=== PATIENT | male | born 1945 | race Caucasian/White ===

== ENCOUNTER 2015-12-22 20:48 | Outpatient (RCR) | payer MEDICARE, OTHER ==
[~2015-12-22] VITALS: Ht 177.8 cm; Wt 122.5 kg
[~2015-12-22 20:48] MED LIST: ALBU8CC IH; CETI-262 PO; CHOL500050 PO; CPR500T PO; CYCL10TA45 PO; DICY20TA33 PO; HYDR-3708 PO; HYDROXYSUT PO; IPRA4AER INH; LEFL20TA18 PO; MAGN400C PO; METH2.5T PO; METO-311 PO; MMT17NA; NF-ESOM40C PO; OMEG-82 PO; ONDN4T PO; SMV20T PO; UBID100C8 PO; [UNRECOGNIZED DRUG - CODE] PO
[2015-12-22] MEDS ORDERED: VANCOMYCIN IV SCH (21:00)
[2015-12-22] MEDS ORDERED: NS IV SCH (21:00)
--- NOTE | 2015-12-23 00:21 | NUR ---
T 97.2, P 67, R 20, B/P 134/74, O2 SAT 95% ON RA. INFUSION COMPLETED. PT DC'D HOME.
[2015-12-23] MEDS ORDERED: VANCOMYCIN COMPOUNDED BY PHARMACY IV SCH (08:05)
[2015-12-23] MEDS: NS FLUSH 10 ML PRN IV ×4 (09:16→20:45)
[2015-12-23] MEDS: VANCOMYCIN 2000 MG in NS IV 480 ML IV SCH ×2 (09:17→20:45)
--- NOTE | 2015-12-23 09:18 | NUR ---
ROBSON GASPART SCAN
--- NOTE | 2015-12-23 10:09 | NUR ---
PT SLEEPING IN RECLINER WITH NO COMPLAINTS AT THIS TIME. PT HAD STATED THAT HE HAD DIARRHEA MULTIPLE TIMES EARLIER THIS AM. CL
[2015-12-24] MEDS: VANCOMYCIN 2000 MG in NS IV 480 ML IV SCH (08:35)
[2015-12-24] MEDS: NS FLUSH 10 ML PRN IV (08:35)
[2015-12-24 09:03] LABS: VANCOMYCIN,TROUGH 11.9 ug/mL (10.0-15.0)
[2015-12-25 09:50] LABS: ALBUMIN 3.7 g/dL (3.4-5.0); TOTAL PROTEIN 7.5 g/dL (6.4-8.5)
[2015-12-25 09:55] LABS: MEAN CORPUSCULAR HGB CONC 34.3 g/dL (31.0-37.0); MEAN CORPUSCULAR VOLUME 93 FL (80-100); MEAN PLATELET VOLUME 10.5 FL (6.0-9.5); PLATELET COUNT 145 10^3uL (150-450); WHITE BLOOD COUNT 5.49 10^3uL (4.0-11.0)
[2015-12-25 09:58] LABS: MEAN CORPUSCULAR HEMOGLOBIN 31.8 PG (26.0-34.0)
[2015-12-25] MEDS: cefTRIAXone SODIUM 2 GM in SODIUM CHLORIDE 50 ML IV SCH (10:10)
[2015-12-25 10:11] LABS: BAND NEUTROPHILS % 0 % (0-6); EOSINOPHILS % 10 % (0-4); LYMPHOCYTES # 1.3 #; MONOCYTES # 0.7 #; MONOCYTES % 14 % (3-11); RBC MORPH NORMAL (NORMAL); SEGMENTED NEUTROPHILS % 52 % (51-67); TOTAL CELLS COUNTED 100
[2015-12-25] MEDS: NS FLUSH 3 ML PRN IV (10:11)
[2015-12-25] MEDS: NS FLUSH 10 ML PRN IV (10:11)
[2015-12-25 11:06] LABS: ERYTHROCYTE SEDIMENTATION RT* 45 mm/hr (0-19)
[2015-12-26] MEDS: cefTRIAXone SODIUM 2 GM in SODIUM CHLORIDE 50 ML IV SCH (08:50)
[2015-12-26] MEDS: NS FLUSH 10 ML PRN IV (08:51)
[2015-12-27] MEDS: cefTRIAXone SODIUM 2 GM in SODIUM CHLORIDE 50 ML IV SCH (08:51)
[2015-12-27] MEDS: NS FLUSH 10 ML PRN IV ×2 (08:51→08:52)
[2015-12-28] MEDS: NS FLUSH 10 ML PRN IV ×2 (08:34→08:58)
[2015-12-28] MEDS: cefTRIAXone SODIUM 2 GM in SODIUM CHLORIDE 50 ML IV SCH (08:34)
[2015-12-28] MEDS ORDERED: LSNP20T PO (08:56)
[2015-12-29] MEDS: cefTRIAXone SODIUM 2 GM in SODIUM CHLORIDE 50 ML IV SCH (08:59)
[2015-12-29] MEDS: NS FLUSH 10 ML PRN IV (09:00)
[2015-12-29] MEDS: NS FLUSH 3 ML PRN IV (09:00)
[2015-12-30] MEDS: cefTRIAXone SODIUM 2 GM in SODIUM CHLORIDE 50 ML IV SCH (09:00)
[2015-12-31] MEDS: cefTRIAXone SODIUM 2 GM in SODIUM CHLORIDE 50 ML IV SCH (08:40)
[2015-12-31] MEDS: NS FLUSH 10 ML PRN IV ×2 (08:41→09:04)
[2015-12-31] MEDS ORDERED: [UNRECOGNIZED DRUG - CODE] PO (08:58)
[2015-12-31] MEDS ORDERED: OMEG1CAP61 PO (09:12)
[2016-01-01] MEDS: cefTRIAXone SODIUM 2 GM in SODIUM CHLORIDE 50 ML IV SCH (08:53)
[2016-01-01] MEDS: NS FLUSH 10 ML PRN IV ×2 (08:53→09:13)
[2016-01-02] MEDS: NS FLUSH 10 ML PRN IV (08:41)
[2016-01-02] MEDS: cefTRIAXone SODIUM 2 GM in SODIUM CHLORIDE 50 ML IV SCH (08:41)
[2016-01-03] MEDS: cefTRIAXone SODIUM 2 GM in SODIUM CHLORIDE 50 ML IV SCH (08:50)
[2016-01-03] MEDS: NS FLUSH 10 ML PRN IV (08:51)
[2016-01-03] MEDS: NS FLUSH 3 ML PRN IV (08:51)
[2016-01-04] MEDS: cefTRIAXone SODIUM 2 GM in SODIUM CHLORIDE 50 ML IV SCH (08:42)
[2016-01-04] MEDS: NS FLUSH 10 ML PRN IV ×2 (08:42→08:43)
[2016-01-04 08:53] VITALS: BP 146/86
== END 2016-03-21 | disposition home or self-care (01) ==
LOC: EUOP 12-23 08:46
PROVIDERS: ATTEND Family Medicine
DX: T81.4XXD Infection following a procedure, subsequent encounter (principal)
CPT/HCPCS: 36415; 80076; 80202; 82565; 84520; 85025; 85652; 86140; 96365; 96366; A4221; J0696; J1642; J3370; J7040

== ENCOUNTER 2016-06-20 15:48 | Outpatient (RCR) | payer MEDICARE, OTHER ==
[~2016-06-20 15:48] MED LIST changes: +LSNP20T PO; +OMEG1CAP61 PO; +[UNRECOGNIZED DRUG - CODE] PO
== END 2016-06-21 09:33 | disposition home or self-care (01) ==
LOC: LAB 15:48 → EDSTATUS 06-21 09:06 → LAB 06-21 09:33
PROVIDERS: ATTEND Family Medicine
DX: R19.7 Diarrhea, unspecified (principal)
CPT/HCPCS: 87045; 87046; 87177; 87209; 87324; 87449; 89055